=== PATIENT | female | born 1950 | race Caucasian/White ===

== ENCOUNTER 2016-04-12 16:03 | Emergency (ER) | payer BC ==
--- NOTE | 2016-04-12 16:53 | DIAGNOSTIC IMAGING REPORT ---
PROCEDURE: XR CHEST 1 VIEW INDICATION: CHEST PAIN TECHNIQUE: Portable AP view 04:33 p.m. COMPARISON: None. FINDINGS: Lungs are clear. Heart and mediastinum are normal. Thorax is normal. IMPRESSION: 1. Negative chest.
--- NOTE | 2016-04-12 18:28 | ED ORDER SUMMARY ---
..... Patient: EUGENIA FAN OrderSheet [facility] VisitID: [id number] [address] [place] [address] 65y, F Registration Date/Time: 04/12/2016 ORDER SHEET Weight: 63.5 kg (measured) Allergies: No Known Drug Allergy GENERAL ORDERS: EKG - ER Stat (16:28 04/12/2016 LNations ER Tech1 per protocol) (16:28 KHoerner) Multi Operation Machine Operator (Continuous) (16:37 04/12/2016 EHassan R.N. per protocol) (Ack 16:42 KHoerner) (16:57 EHassan R.N.) Chest 1V Urgent (16:37 04/12/2016 EHassan R.N. per protocol) (Ack 16:41 KHoerner) (16:52 MCampbell) Cardiac Panel Stat (16:37 04/12/2016 EHassan R.N. per protocol) (Ack 16:41 KHoerner) (16:57 EHassan R.N.) Oxygen (2 L/min) (NC) (16:37 04/12/2016 EHassan R.N. per protocol) (Ack 16:42 KHoerner) (16:57 EHassan R.N.) Pulse oximeter (16:37 04/12/2016 EHassan R.N. per protocol) (Ack 16:42 KHoerner) (16:57 EHassan R.N.) EKG - ER Stat (16:37 04/12/2016 EHassan R.N. per protocol) (Cancelled: Duplicate Order16:41 KHoerner) Vitals (16:37 04/12/2016 EHassan R.N. per protocol) (Ack 16:42 KHoerner) (16:57 EHassan R.N.) NPO (16:37 04/12/2016 EHassan R.N. per protocol) (Ack 16:42 KHoerner) (16:57 EHassan R.N.) MEDICATION ORDERS: Aspirin PO 325 mg (Do not crush or chew) (16:37 04/12/2016 EHassan R.N. per protocol) (16:37 EHassan R.N.) Metoprolol PO 50 mg (HIGH ALERT MEDICATION, NOW) (18:18 04/12/2016 Shirley MCCABE) (18:26 EHassan R.N.) IV FLUIDS: IV Saline Lock (16:37 04/12/2016 Geovanni R.N. per protocol) (16:38 EHassan R.N.) ORDER SHEET NOTES: [Electronically signed by Hanane Escobar R.N. (00:43 04/13/2016)] [Electronically signed by Mary Castro MD (03:03 04/17/2016)] [Electronically locked/signed by Hanane Escobar R.N. (00:43 04/13/2016)]
--- NOTE | 2016-04-12 18:28 | ED ORDER SUMMARY ---
..... Patient: EUGENIA FAN OrderSheet [facility] VisitID: [id number] [address] [place] [address] 65y, F Registration Date/Time: 04/12/2016 ORDER SHEET Weight: 63.5 kg (measured) Allergies: No Known Drug Allergy GENERAL ORDERS: EKG - ER Stat (16:28 04/12/2016 LNations ER Tech1 per protocol) (16:28 KHoerner) Green Chain Marker (Continuous) (16:37 04/12/2016 EHassan R.N. per protocol) (Ack 16:42 KHoerner) (16:57 EHassan R.N.) Chest 1V Urgent (16:37 04/12/2016 EHassan R.N. per protocol) (Ack 16:41 KHoerner) (16:52 MCampbell) Cardiac Panel Stat (16:37 04/12/2016 EHassan R.N. per protocol) (Ack 16:41 KHoerner) (16:57 EHassan R.N.) Oxygen (2 L/min) (NC) (16:37 04/12/2016 EHassan R.N. per protocol) (Ack 16:42 KHoerner) (16:57 EHassan R.N.) Pulse oximeter (16:37 04/12/2016 EHassan R.N. per protocol) (Ack 16:42 KHoerner) (16:57 EHassan R.N.) EKG - ER Stat (16:37 04/12/2016 EHassan R.N. per protocol) (Cancelled: Duplicate Order16:41 KHoerner) Vitals (16:37 04/12/2016 EHassan R.N. per protocol) (Ack 16:42 KHoerner) (16:57 EHassan R.N.) NPO (16:37 04/12/2016 EHassan R.N. per protocol) (Ack 16:42 KHoerner) (16:57 EHassan R.N.) MEDICATION ORDERS: Aspirin PO 325 mg (Do not crush or chew) (16:37 04/12/2016 EHassan R.N. per protocol) (16:37 EHassan R.N.) Metoprolol PO 50 mg (HIGH ALERT MEDICATION, NOW) (18:18 04/12/2016 Shirley MCCABE) (18:26 EHassan R.N.) IV FLUIDS: IV Saline Lock (16:37 04/12/2016 Geovanni R.N. per protocol) (16:38 EHassan R.N.) ORDER SHEET NOTES: [Electronically signed by Hanane Escobar R.N. (00:43 04/13/2016)] [Electronically signed by Mary Castro MD (03:03 04/17/2016)] [Electronically locked/signed by Hanane Escobar R.N. (00:43 04/13/2016)]
--- NOTE | 2016-04-12 18:28 | ED CLINICAL REPORT ---
Clinical Report - Physicians/Mid Levels [facility] [address] [place] [address] 04/12/2016 16:05 Patient: EUGENIA FAN Time Seen: 16:15. Arrived- By ambulance. Historian- patient and EMS personnel. HISTORY OF PRESENT ILLNESS Chief Complaint: CHEST PAIN. At its maximum, severity described as moderate. When seen in the E.D., it was almost gone. Modifying factors- worsened by exertion. Relieved by rest. It is described as "pain" and it is described as located in the central chest and left chest area. This started about 5 days ago and is still present. Onset during moderate exertion. No nausea, vomiting or diaphoresis. She has had difficulty breathing. (PT states that 5 days ago, she had her first episode of CP while walking up a steep hill with her dog. She had to stop and rest, and the pain went away. The next day, the same thing happened. PT states that on the 3rd day, she got pain and a sense of dyspnea when she went up the hill, and had to walk slowly home. Pt states that yesterday, she was carrying some boxes, and she began to have CP and SOB. Today, she was carrying groceries to the car, and experienced the same thing, except the pain persisted, even after she stopped to rest. Pt decided to come in and be seen, as the pain persisted throughout the afternoon. Pt states that it is now better. Pt states she had a negative stress test some years ago, but has not been tested recently.). Similar symptoms previously: None. Recent medical care: Not recently seen/assessed. REVIEW OF SYSTEMS No fever, chills, cough, pedal edema or calf pain. No fainting episodes, headache, sore throat, blurred vision or abdominal pain. No black stools, difficulty with urination, skin rash, enlarged lymph nodes or joint pain. No bloody stools. All systems otherwise negative, except as recorded above. PAST HISTORY Problems: Hypertension. Additional Surgeries: Moles removal. Tubal Ligation. Medications: Tylenol Arthritis Pain Oral. Multivitamin Oral. Calcium + D Oral. Nasacort AQ Nasal. Fish Oil Oral (Capsule 1200 mg) 1 capsule. [place]-3 Complex Oral. Losartan Potassium Oral 50 mg, daily. Montelukast Sodium Oral 10 mg, daily. Allergies: No Known Drug Allergy. SOCIAL HISTORY Former smoker, end date 1996. Alcohol use. ADDITIONAL NOTES The nursing notes have been reviewed. PHYSICAL EXAM Vital Signs: 04/12/2016 16:15 BP: 177/88. HR: 77. RR: 17. O2 saturation: 100%. Temp: 98.1 F. Pain level now: 0/10. Have been reviewed. Appearance: Alert. Oriented X3. No acute distress. Eyes: Pupils equal, round and reactive to light. Eyes normal inspection. ENT: Nose normal. Neck: Normal inspection. CVS: Normal heart rate and rhythm. Heart sounds normal. Pulses normal. Respiratory: No respiratory distress. Breath sounds normal. Abdomen: Soft and nontender. Back: Normal external inspection. Skin: Skin warm and dry. Normal skin color. No rash. Normal skin turgor. Extremities: Extremities exhibit normal ROM. No lower extremity edema. Neuro: Oriented X 3. No motor deficit. No sensory deficit. LABS, X-RAYS, AND EKG EKG: EKG time: (1617). No acute ischemia. Normal sinus rhythm. Rate: 76. Left atrial enlargement. Normal JUAN. Normal QRS complex. Normal axis. Normal QT and QTc. Non-specific ST segment / T wave abnormalities. Prior EKG unavailable. The study has been interpreted contemporaneously by me. The study has been independently viewed by me. The EKG appears to be a good tracing. I agree with and confirm the computer reading of the EKG. Rhythm Strip #1: Time: (17:52). Rate= 81. Normal sinus rhythm. Regular rhythm. Narrow QRS complexes. No ectopy. Conduction normal. Normal ST segments and T waves. The study was interpreted by me. Chest X-ray: No acute disease. Normal lung markings present. Normal heart size. Mediastinum normal. Great vessels normal. Soft tissues normal. No infiltrate. No fracture. No bony lesion present. Views: AP (portable). Technique: good. The X-rays were independently viewed by me, interpreted by the radiologist and contemporaneously by me and discussed with the radiologist. Prior films were not available for comparison. Laboratory Tests: CBC w Diff: (MASON: 04/12/2016 16:15) ( MsgRcvd 04/12/2016 17:26) Final results Test Result Flag Units (Reference) WHITE BLOOD COUNT 5.8 K/uL (4.5-11.5) RED BLOOD COUNT 4.05 M/uL (4.00-5.20) HEMOGLOBIN 12.7 gm/dL (12.0-16.0) HEMATOCRIT 37.5 % (36.0-46.0) MEAN CELL VOLUME 93 fL (80-100) MEAN CORPUSCULAR HGB 31 pg (26-34) MEAN CORPUSCULAR HGB CONC 34 g/dL (31-37) RED CELL DISTRIBUTION WIDTH 12.9 % (11.6-14.8) PLATELET COUNT 220 K/uL (150-400) NEUTROPHIL % 48.7 L % (50-75) LYMPH % 41.4 H % (25-40) MONO % 8.3 % (3-14) EOSINOPHIL % 1.1 % (0-4) BASOPHIL % 0.5 % (0-2) CHEM 13 PANEL: (MASON: 04/12/2016 16:15) ( MsgRcvd 04/12/2016 17:36) Final results Test Result Flag Units (Reference) GLUCOSE 100 mg/dL (70-110) BUN 10 mg/dL (7-18) CREATININE 0.6 mg/dL (0.6-1.3) Estimated GFR >60 mL/min Estimated GFR- >60 mL/min Note: Persistent reduction over 3 months in eGFR<60 mL/min/1.73 m2 defines CKD. Patients with eGFR values>=60 mL/min/1.73 m2 may also have CKD if evidence ofpersistent proteinuria. Additional information may be foundat www.kidney.org. SODIUM 144 mmol/L (136-145) POTASSIUM 3.4 L mmol/L (3.5-5.1) CHLORIDE 107 mmol/L (98-107) CARBON DIOXIDE 29 mmol/L (21-32) CALCIUM 9.1 mg/dL (8.5-10.1) TOTAL PROTEIN 7.9 g/dL (6.4-8.2) ALBUMIN 4.2 g/dL (3.3-5.0) BILIRUBIN, TOTAL 0.3 mg/dL (0.0-1.0) ALKALINE PHOSPHATASE 73 U/L (46-116) AST (SGOT) 27 U/L (15-37) ALT (SGPT) 34 U/L (12-78) CPK 67 U/L (24-260) MAGNESIUM 2.1 mg/dL (1.8-2.4) TROPONIN I <0.05 L ng/mL (0.00-1.5) TROPONIN REFERENCE RANGE:<0.1 NEGATIVE0.1-1.5 INDETERMINANT>1.5 POSITIVE . Pulse Oximetry: 04/12/2016 16:15 O2 saturation: 100%. (FIO2 - room air). Interpretation: normal. PROGRESS AND PROCEDURES Course of Care: PT was given ASA and metoprolol in the ED. I was concerned about her story and the exertional CP, and felt she should be worked up. Work-up was done, and was negative. Pt ambulated to the bathroom without CP. I spoke with Dr. Tolbert of cardiology regarding a plan for this pt, and he stated he would like the pt to come to his office first thing in the morning (9:00) to be urgently evaluated. I have d/w pt that it is extremely important that the pt go to this appointment. If she has any worsening of sx at all, she should immediately return to the ED, and we have discussed this. Discussed case with health care provider (Didi/cardiology). Patient counseled in person regarding the patient's stable condition, test results, diagnosis and need for follow-up. Concerns were addressed. Old medical records reviewed. Disposition: Discharged. Condition: stable. CLINICAL IMPRESSION Precordial chest pain characterized as "discomfort" .12 lead EKG performed. INSTRUCTIONS (Please avoid any exertion between now and your appointment tomorrow. If you develop chest discomfort, take nitroglycerine, as directed. If this does not result in resolution of the pain, return the emergency dept immediately.). Warnings: Further evaluation is necessary in order to assess the possibility of serious illness. It is very important to follow up with a physician. GENERAL WARNINGS: Return or contact your physician immediately if your condition worsens or changes unexpectedly, if not improving as expected, or if other problems arise. Your Current Medications: CONTINUE TAKING THE FOLLOWING MEDICATIONS: Calcium + D Oral. Fish Oil Oral : Capsule 1200 mg, 1 capsule. Losartan Potassium Oral : 50 mg daily. Montelukast Sodium Oral : 10 mg daily. Multivitamin Oral. Nasacort AQ Nasal. Moody-3 Complex Oral. Tylenol Arthritis Pain Oral. Prescription Medications: Metoprolol 50 mg: take 1 orally every 12 hours. Dispense thirty (30). No refills. Nitrostat 0.4 mg: dissolve 1 tab under tongue every 5 minutes as needed for chest pain or difficulty breathing. Dispense one (1) bottle. No refills. Substitution is permissible. Understanding of the discharge instructions verbalized by patient. Follow-up with: Oliver Tolbert MD, Cardiology, [phone], [place] [address] Follow up tomorrow as scheduled. Reason for referral: Follow up with Dr. Tolbert at 10:00 tomorrow morning, as he has requested. Please call the office and let them know that Dr. Castro (your ER doctor) and Dr. Tolbert spoke during your visit, and this is what he requested. (Electronically signed by Mary Castro MD 04/17/2016 3:03) Earnest EUGENIA Grayson VisitID: [id number] Date: 04/12/2016 04/13/2016 9:13 Instructed patient to follow up with Dr. Tolbert. Pt. called to ask about follow up appt scheduled with Dr. Tolbert while pt was in ER. Pt stated that phone number for his office was wrong and after tracking it down she was told there was no appt scheduled. CHARLETTE looked into clinical notes and found s notes to this effect. CHARLETTE called Dr. Tolbert's office to clarify. Office took Pt's phone number and stated they would call pt. for demographic and insurance information. CHARLETTE called pt back after a few minutes and pt stated Dr. Lau's office had been in touch. (Electronically signed by Padmini Arzate - 04/13/2016 9:13)
--- NOTE | 2016-04-12 18:28 | ED NURSING NOTES ---
Clinical Report - Nurses [facility] [address] [place] [address] 04/12/2016 16:05 [id number] Triage time 16:10 Apr 12 2016. Chief Complaint: CHEST PAIN. Alert. LASHONDA COMA SCORE: [place] Coma Scale: 15- eyes open spontaneously (4); best verbal response- oriented x 4 (5); best motor response- obeys commands (6). --16:21 Shelton Mcfarlane R.N. 16:15 04/12/16. BP: 177/88. HR: 81. RR: 16. O2 saturation: 100% on room air. Temp: 98.1 F. Pain level now: 2/10. Additional comments: Dyspnea. --16:21 Shelton Mcfarlane R.N. Triage time 1610 PM. Acuity: LEVEL 2. Chief Complaint: CHEST PAIN and DISCOMFORT. Alert. No acute distress. SEPSIS SCREEN: Sepsis Screen. Negative (no infection suspected/documented). LASHONDA COMA SCORE: [place] Coma Scale: 15- eyes open spontaneously (4); best verbal response- oriented x 4 (5); best motor response- obeys commands (6). --16:29 Hanane Escobar R.N. 16:15 04/12/16. BP: 177/88. HR: 77. RR: 17 (regular and unlabored). O2 saturation: 100% on room air. Temp: 98.1 F. Pain level now: 0/10. --16:29 Hanane Escobar R.N. Weight: 63.5 kg measured. Height/Length: 65 inches Per Patient. BMI: 23.3. --16:18 Shelton Mcfarlane R.N. Medications Montelukast Sodium Oral 10 mg, daily. --16:38 Hanane Escobar R.N. Losartan Potassium Oral 50 mg, daily. --16:38 Hanane Escobar R.N. Fish Oil Oral (Capsule 1200 mg) 1 capsule. [place]-3 Complex Oral. --16:39 Hanane Escobar R.N. Nasacort AQ Nasal. --16:39 Hanane Escobar R.N. Calcium + D Oral. --16:40 Hanane Escobar R.N. Multivitamin Oral. --16:40 Hanane Escobar R.N. Tylenol Arthritis Pain Oral. --16:40 Hanane Escobar R.N. Allergies No Known Drug Allergy. --16:21 Shelton Mcfarlane R.N. Medication/allergy information source: the patient. --16:21 Shelton Mcfarlane R.N. Medication/allergy information source: the patient. --16:29 Hanane Escobar R.N. History Arrived by private vehicle. Historian: patient. Unaccompanied. Primary physician (Tory Bardales). ( Chest pain intermittently for the last 5 days.). Onset. (about 5 days ago). 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 --16:21 Shelton Mcfarlane R.N. Arrived by private vehicle. Historian: patient. Primary physician (Dr. Bardales). ( PT states on Sunday was walking her dog when she felt "chest pressure" mid upper chest pain 07/22, then Sunday another episode while walking experience chest discomfort with SOB, again on Sunday (morning walking to car) and today while packing boxes around 3 pm, experienced chest pressure with SOB. Decided to come to ED). Onset. (sunday). She has had difficulty breathing. Reports experiencing sweating episodes. No nausea, vomiting, fever or cough. 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 PAST MEDICAL HX: Immunizations: up-to-date. The patient is post-menopausal. SOCIAL HX: Former smoker, end date 1996. Alcohol use. History of drug use. No infectious disease exposure. ABUSE ASSESSMENT: No report of abuse. SELF HARM ASSESSMENT: A self harm assessment was performed. The patient answered "no" to the question "Do you have thoughts of harming or killing yourself?" and "Have you recently had thoughts about harming or killing others?". FALL RISK ASSESSMENT: Fall risk assessment completed. No fall risk identified. NUTRITIONAL RISK ASSESSMENT: The nutritional risk assessment revealed no deficiencies. FUNCTIONAL ASSESSMENT: Functional assessment: no impairments noted. LEARNING NEEDS ASSESSMENT: The learning needs assessment revealed no barriers. SKIN INTEGRITY ASSESSMENT: Skin integrity risk assessment completed. No skin integrity risk identified. --16:29 Hanane Escobar R.N. PROBLEMS: Hypertension. --16:42 Hanane Escobar R.N. ADDITIONAL SURGERIES: Moles removal. Tubal Ligation. --16:42 Hanane Escobar R.N. Interventions ID band on patient. --16:29 Hanane Escobar R.N. PHYSICAL ASSESSMENT Ambulatory to room. GENERAL / NEURO / PSYCH: Alert. Oriented X 4. Appears in no acute distress. HEENT: Mucous membranes are pink. RESPIRATORY: Respirations not labored. Chest nontender. Breath sounds within normal limits. CVS: No JVD or carotid bruit. Normal sinus rhythm noted. Cardiac rhythm: normal sinus rhythm. Heart sounds within normal limits. Pulses within normal limits. Capillary refill less than 2 seconds. GI / : Abdomen soft and nontender. EXTREMITIES: No lower extremity edema. SKIN: Skin is warm and dry. Normal skin turgor. --16:30 Hanane Escobar R.N. NURSING PROGRESS NOTES 16:24 04/12/2016 Site #1 started via IV in the right antecubital space with an 20g angiocath; one attempt. Blood drawn: rainbow set. Labeled in the presence of the patient and sent to the lab. Saline lock flushed. --16:34 Hanane Escobar R.N. 16:30 04/12/16. BP: 173/79. HR: 76. RR: 15. O2 saturation: 100%. Pain level now: 0/10. --16:34 Hanane Escobar R.N. Cardiac rhythm: normal sinus rhythm. The initial plan of care for this patient has been created This plan of care was discussed with the patient. ekg monitor tech, pulse oximeter and NIBP monitor placed on patient. EKG time: (1605 PM). Patient ID band checked for patient name, birthdate and medical record number: patient confirmed. Blood samples drawn from the right antecubital space by nurse per protocol ; labeled in presence of the patient and sent to lab: rainbow set: cardiac enzymes (1st set). Patient gowned. Warming measures: blanket applied. ( EKG obtained, ASA given as per protocol, blood sent, pt denies CP but admits to being SOB). CVS: Denies chest pain. Two patient identifiers checked. Call light placed in reach. Side rails up x 2. Bed placed in lowest position. Brakes of bed on. --16:34 Hanane Escobar R.N. 16:27 04/12/2016 Aspirin PO Tablets 325 mg given. Allergies verified and confirmed 5 rights. --16:37 Hanane Escobar R.N. 17:09 04/12/16. BP: 156/65 taken on the left arm, via an automated monitor, while lying. HR: 74. RR: 17. O2 saturation: 100%. Pain level now: 0/10. --18:19 Hanane Escobar R.N. Cardiac rhythm: normal sinus rhythm. ekg monitor tech, pulse oximeter and NIBP monitor placed on patient. Reassurance given. Reassessment after oxygen administered. She is calm and resting quietly. Overall patient status is the same- she states feels the same. RESPIRATORY: Denies difficulty breathing. CVS: Denies chest pain. Call light placed in reach. Side rails up x 1. Bed placed in lowest position. Brakes of bed on. --18:19 Hanane Escobar R.N. 17:30 04/12/16. BP: 153/56. HR: 79. RR: 15. O2 saturation: 100%. O2 started via nasal cannula at 2 liters/minute. Pain level now: 0/10. --18:20 Hanane Escobar R.N. Cardiac rhythm: normal sinus rhythm. Reassurance given. Overall patient status is the same- she states feels the same. RESPIRATORY: Denies difficulty breathing. No respiratory distress present. CVS: Denies chest pain. Normal sinus rhythm noted. Call light placed in reach. Side rails up x 1. --18:20 Hanane Escobar R.N. 18:21 04/12/2016 Site #1 reassessed; patent, infusing well and no signs of infection or infiltration. Converted to saline lock. --18:22 Hanane Escobar R.N. 18:01 04/12/16. BP: 139/66 (regular adult cuff) taken on the left arm, via an automated monitor, while lying. HR: 77. RR: 15 (regular, unlabored and normal). O2 saturation: 100% on room air. Pain level now: 0/10. --18:22 Hanane Escobar R.N. Cardiac rhythm: normal sinus rhythm. ekg monitor tech, pulse oximeter and NIBP monitor placed on patient. RESPIRATORY: Denies difficulty breathing. CVS: Denies chest pain. --18:22 Hanane Escobar R.N. 17:04 04/12/2016 Aspirin PO Response: no adverse reaction. --18:29 Hanane Escobar R.N. 18:26 04/12/2016 Metoprolol PO Tablets 50 mg given. Allergies verified and confirmed 5 rights. --18:26 Hanane Escobar R.N. DISPOSITION / DISCHARGE 19:06 04/12/2016 Site #1 removed upon discharge. Catheter intact. Manual pressure and bandaid applied. --21:32 Hanane Escobar R.N. Departure time: 1910 PM. Condition at departure: improved and stable. The goals identified in the patient's plan of care were met. No learning barriers present. Discharge instructions provided and reviewed with the patient. Reviewed warnings (S/S of CP). Reviewed medication(s) side effects, precautions, dosing and course information. Prescription(s) given to the patient. Reviewed referral to a summer law clerk. Activity restrictions (rest) reviewed. Patient verbalized understanding. Written instructions provided in Vietnamese. ( All instructions reviewed, importance of following up with Dr. Tolbert in the morning, Nitro script given to her and explanation given and verbalizes back of how to take it when experiencing symptoms of CP, a max of 3 and then if no relief to return to ED. All concerns addressed.). No treatment instructions. The patient was discharged by the physician. She was discharged home and unaccompanied at time of discharge. She left the Emergency Department ambulatory and via private vehicle. Patient driving. FALL RISK ASSESSMENT: Fall risk assessment completed. No fall risk identified. LASHONDA COMA SCORE: [place] Coma Scale: 15- eyes open spontaneously (4); best verbal response- oriented x 4 (5); best motor response- obeys commands (6). --00:43 Hanane Escobar R.N. 23:53 04/12/16. BP: 168/72 (regular adult cuff) taken on the left arm, via an automated monitor, while sitting. HR: 67. RR: 16. O2 saturation: 100% on room air. Temp: 98.2 F (oral). Pain level now: 0. --00:43 Hanane Escobar R.N. Locked/Released at 04/13/2016 0:43 by Hanane Escobar R.N.
--- NOTE | 2016-04-12 18:28 | ED NURSING NOTES ---
Clinical Report - Nurses [facility] [address] [place] [address] 04/12/2016 16:05 [id number] Triage time 16:10 Apr 12 2016. Chief Complaint: CHEST PAIN. Alert. LASHONDA COMA SCORE: [place] Coma Scale: 15- eyes open spontaneously (4); best verbal response- oriented x 4 (5); best motor response- obeys commands (6). --16:21 Shelton Mcfarlane R.N. 16:15 04/12/16. BP: 177/88. HR: 81. RR: 16. O2 saturation: 100% on room air. Temp: 98.1 F. Pain level now: 2/10. Additional comments: Dyspnea. --16:21 Shelton Mcfarlane R.N. Triage time 1610 PM. Acuity: LEVEL 2. Chief Complaint: CHEST PAIN and DISCOMFORT. Alert. No acute distress. SEPSIS SCREEN: Sepsis Screen. Negative (no infection suspected/documented). LASHONDA COMA SCORE: [place] Coma Scale: 15- eyes open spontaneously (4); best verbal response- oriented x 4 (5); best motor response- obeys commands (6). --16:29 Hanane Escobar R.N. 16:15 04/12/16. BP: 177/88. HR: 77. RR: 17 (regular and unlabored). O2 saturation: 100% on room air. Temp: 98.1 F. Pain level now: 0/10. --16:29 Hanane Escobar R.N. Weight: 63.5 kg measured. Height/Length: 65 inches Per Patient. BMI: 23.3. --16:18 Shelton Mcfarlane R.N. Medications Montelukast Sodium Oral 10 mg, daily. --16:38 Hanane Escobar R.N. Losartan Potassium Oral 50 mg, daily. --16:38 Hanane Escobar R.N. Fish Oil Oral (Capsule 1200 mg) 1 capsule. [place]-3 Complex Oral. --16:39 Hanane Escobar R.N. Nasacort AQ Nasal. --16:39 Hanane Escobar R.N. Calcium + D Oral. --16:40 Hanane Escobar R.N. Multivitamin Oral. --16:40 Hanane Escobar R.N. Tylenol Arthritis Pain Oral. --16:40 Hanane Escobar R.N. Allergies No Known Drug Allergy. --16:21 Shelton Mcfarlane R.N. Medication/allergy information source: the patient. --16:21 Shelton Mcfarlane R.N. Medication/allergy information source: the patient. --16:29 Hanane Escobar R.N. History Arrived by private vehicle. Historian: patient. Unaccompanied. Primary physician (Tory Bardales). ( Chest pain intermittently for the last 5 days.). Onset. (about 5 days ago). 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 --16:21 Shelton Mcfarlane R.N. Arrived by private vehicle. Historian: patient. Primary physician (Dr. Bardales). ( PT states on Sunday was walking her dog when she felt "chest pressure" mid upper chest pain 07/22, then Sunday another episode while walking experience chest discomfort with SOB, again on Sunday (morning walking to car) and today while packing boxes around 3 pm, experienced chest pressure with SOB. Decided to come to ED). Onset. (sunday). She has had difficulty breathing. Reports experiencing sweating episodes. No nausea, vomiting, fever or cough. 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 PAST MEDICAL HX: Immunizations: up-to-date. The patient is post-menopausal. SOCIAL HX: Former smoker, end date 1996. Alcohol use. History of drug use. No infectious disease exposure. ABUSE ASSESSMENT: No report of abuse. SELF HARM ASSESSMENT: A self harm assessment was performed. The patient answered "no" to the question "Do you have thoughts of harming or killing yourself?" and "Have you recently had thoughts about harming or killing others?". FALL RISK ASSESSMENT: Fall risk assessment completed. No fall risk identified. NUTRITIONAL RISK ASSESSMENT: The nutritional risk assessment revealed no deficiencies. FUNCTIONAL ASSESSMENT: Functional assessment: no impairments noted. LEARNING NEEDS ASSESSMENT: The learning needs assessment revealed no barriers. SKIN INTEGRITY ASSESSMENT: Skin integrity risk assessment completed. No skin integrity risk identified. --16:29 Hanane Escobar R.N. PROBLEMS: Hypertension. --16:42 Hanane Escobar R.N. ADDITIONAL SURGERIES: Moles removal. Tubal Ligation. --16:42 Hanane Escobar R.N. Interventions ID band on patient. --16:29 Hanane Escobar R.N. PHYSICAL ASSESSMENT Ambulatory to room. GENERAL / NEURO / PSYCH: Alert. Oriented X 4. Appears in no acute distress. HEENT: Mucous membranes are pink. RESPIRATORY: Respirations not labored. Chest nontender. Breath sounds within normal limits. CVS: No JVD or carotid bruit. Normal sinus rhythm noted. Cardiac rhythm: normal sinus rhythm. Heart sounds within normal limits. Pulses within normal limits. Capillary refill less than 2 seconds. GI / : Abdomen soft and nontender. EXTREMITIES: No lower extremity edema. SKIN: Skin is warm and dry. Normal skin turgor. --16:30 Hanane Escobar R.N. NURSING PROGRESS NOTES 16:24 04/12/2016 Site #1 started via IV in the right antecubital space with an 20g angiocath; one attempt. Blood drawn: rainbow set. Labeled in the presence of the patient and sent to the lab. Saline lock flushed. --16:34 Hanane Escobar R.N. 16:30 04/12/16. BP: 173/79. HR: 76. RR: 15. O2 saturation: 100%. Pain level now: 0/10. --16:34 Hanane Escobar R.N. Cardiac rhythm: normal sinus rhythm. The initial plan of care for this patient has been created This plan of care was discussed with the patient. perforating machine operator, pulse oximeter and NIBP monitor placed on patient. EKG time: (1605 PM). Patient ID band checked for patient name, birthdate and medical record number: patient confirmed. Blood samples drawn from the right antecubital space by nurse per protocol ; labeled in presence of the patient and sent to lab: rainbow set: cardiac enzymes (1st set). Patient gowned. Warming measures: blanket applied. ( EKG obtained, ASA given as per protocol, blood sent, pt denies CP but admits to being SOB). CVS: Denies chest pain. Two patient identifiers checked. Call light placed in reach. Side rails up x 2. Bed placed in lowest position. Brakes of bed on. --16:34 Hanane Escobar R.N. 16:27 04/12/2016 Aspirin PO Tablets 325 mg given. Allergies verified and confirmed 5 rights. --16:37 Hanane Escobar R.N. 17:09 04/12/16. BP: 156/65 taken on the left arm, via an automated monitor, while lying. HR: 74. RR: 17. O2 saturation: 100%. Pain level now: 0/10. --18:19 Hanane Escobar R.N. Cardiac rhythm: normal sinus rhythm. perforating machine operator, pulse oximeter and NIBP monitor placed on patient. Reassurance given. Reassessment after oxygen administered. She is calm and resting quietly. Overall patient status is the same- she states feels the same. RESPIRATORY: Denies difficulty breathing. CVS: Denies chest pain. Call light placed in reach. Side rails up x 1. Bed placed in lowest position. Brakes of bed on. --18:19 Hanane Escobar R.N. 17:30 04/12/16. BP: 153/56. HR: 79. RR: 15. O2 saturation: 100%. O2 started via nasal cannula at 2 liters/minute. Pain level now: 0/10. --18:20 Hanane Escobar R.N. Cardiac rhythm: normal sinus rhythm. Reassurance given. Overall patient status is the same- she states feels the same. RESPIRATORY: Denies difficulty breathing. No respiratory distress present. CVS: Denies chest pain. Normal sinus rhythm noted. Call light placed in reach. Side rails up x 1. --18:20 Hanane Escobar R.N. 18:21 04/12/2016 Site #1 reassessed; patent, infusing well and no signs of infection or infiltration. Converted to saline lock. --18:22 Hanane Escobar R.N. 18:01 04/12/16. BP: 139/66 (regular adult cuff) taken on the left arm, via an automated monitor, while lying. HR: 77. RR: 15 (regular, unlabored and normal). O2 saturation: 100% on room air. Pain level now: 0/10. --18:22 Hanane Escobar R.N. Cardiac rhythm: normal sinus rhythm. perforating machine operator, pulse oximeter and NIBP monitor placed on patient. RESPIRATORY: Denies difficulty breathing. CVS: Denies chest pain. --18:22 Hanane Escobar R.N. 17:04 04/12/2016 Aspirin PO Response: no adverse reaction. --18:29 Hanane Escobar R.N. 18:26 04/12/2016 Metoprolol PO Tablets 50 mg given. Allergies verified and confirmed 5 rights. --18:26 Hanane Escobar R.N. DISPOSITION / DISCHARGE 19:06 04/12/2016 Site #1 removed upon discharge. Catheter intact. Manual pressure and bandaid applied. --21:32 Hanane Escobar R.N. Departure time: 1910 PM. Condition at departure: improved and stable. The goals identified in the patient's plan of care were met. No learning barriers present. Discharge instructions provided and reviewed with the patient. Reviewed warnings (S/S of CP). Reviewed medication(s) side effects, precautions, dosing and course information. Prescription(s) given to the patient. Reviewed referral to a cv rn. Activity restrictions (rest) reviewed. Patient verbalized understanding. Written instructions provided in Kinyarwanda. ( All instructions reviewed, importance of following up with Dr. Tolbert in the morning, Nitro script given to her and explanation given and verbalizes back of how to take it when experiencing symptoms of CP, a max of 3 and then if no relief to return to ED. All concerns addressed.). No treatment instructions. The patient was discharged by the physician. She was discharged home and unaccompanied at time of discharge. She left the Emergency Department ambulatory and via private vehicle. Patient driving. FALL RISK ASSESSMENT: Fall risk assessment completed. No fall risk identified. LASHONDA COMA SCORE: [place] Coma Scale: 15- eyes open spontaneously (4); best verbal response- oriented x 4 (5); best motor response- obeys commands (6). --00:43 Hanane Escobar R.N. 23:53 04/12/16. BP: 168/72 (regular adult cuff) taken on the left arm, via an automated monitor, while sitting. HR: 67. RR: 16. O2 saturation: 100% on room air. Temp: 98.2 F (oral). Pain level now: 0. --00:43 Hanane Escobar R.N. Locked/Released at 04/13/2016 0:43 by Hanane Escobar R.N.
--- NOTE | 2016-04-17 03:03 | ED MAR SUMMARY ---
..... Medication Administration Record [facility] [address] [place] [address] Patient: EUGENIA FAN Visit ID: [id number] 65y, F Weight: 63.5 kg Height/Length: 65 in BMI: 23.3 ALLERGIES: No Known Drug Allergy Given 16:27 04/12/2016 Hanane Escobar RBradyNBrady Medication Administered: ASPIRIN [PO], Dose: 325 mg Tablets PO. Medication Ordered: Aspirin PO 325 mg (Do not crush or chew). Given 18:26 04/12/2016 Hanane Escobar, RBradyN. Medication Administered: METOPROLOL [PO], Dose: 50 mg Tablets PO. Medication Ordered: Metoprolol PO 50 mg (HIGH ALERT MEDICATION, NOW).
--- NOTE | 2016-04-17 03:03 | ED DISCHARGE INSTRUCTIONS ---
Patient: EUGENIA FAN General Instructions [facility] VisitID: [id number] [place] [address] 65y, F Registration Date/Time: 04/12/2016 Precordial chest pain characterized as "discomfort" .12 lead EKG performed. INSTRUCTIONS (Please avoid any exertion between now and your appointment tomorrow. If you develop chest discomfort, take nitroglycerine, as directed. If this does not result in resolution of the pain, return the emergency dept immediately.). Warnings: Further evaluation is necessary in order to assess the possibility of serious illness. It is very important to follow up with a physician. GENERAL WARNINGS: Return or contact your physician immediately if your condition worsens or changes unexpectedly, if not improving as expected, or if other problems arise. Your Current Medications: CONTINUE TAKING THE FOLLOWING MEDICATIONS: Calcium + D Oral. Fish Oil Oral : Capsule 1200 mg, 1 capsule. Losartan Potassium Oral : 50 mg daily. Montelukast Sodium Oral : 10 mg daily. Multivitamin Oral. Nasacort AQ Nasal. [place]-3 Complex Oral. Tylenol Arthritis Pain Oral. Prescription Medications: Metoprolol 50 mg: take 1 orally every 12 hours. Dispense thirty (30). No refills. Nitrostat 0.4 mg: dissolve 1 tab under tongue every 5 minutes as needed for chest pain or difficulty breathing. Dispense one (1) bottle. No refills. Substitution is permissible. Understanding of the discharge instructions verbalized by patient. Follow-up with: Oliver Tolbert MD, Cardiology, [phone], [address], [place] [address] Follow up tomorrow as scheduled. Reason for referral: Follow up with Dr. Tolbert at 10:00 tomorrow morning, as he has requested. Please call the office and let them know that Dr. Castro (your ER doctor) and Dr. Tolbert spoke during your visit, and this is what he requested. ADDITIONAL INFORMATION Chest Pain, Uncertain Cause Chest pain can happen for a number of reasons. Sometimes the cause can not be determined. If yourcondition does not seem serious, and your pain does not appear to be coming from your heart, your doctor may recommend watching it closely. Sometimes the signs of a serious problem take more time to appear. Therefore, watch for the warning signs listed below. Home care After your visit, follow these recommendations: Rest today and avoid strenuous activity. Take any prescribed medicine as directed. Follow-up care Follow up with your doctor or this facility as instructed or if you do not start to feel better within 24 hours. Call 911 Get immediate medical attention if any of the following occur: A change in the type of pain: if it feels different, becomes more severe, lasts longer, or begins to spread into your shoulder, arm, neck, jaw or back Shortness of breath or increased pain with breathing Weakness, dizziness, or fainting Rapid heart beat Get prompt medical attention Call your doctor right away if any of the following occur: Cough with dark colored sputum (phlegm) or blood Fever of 100.4F(38C) or higher, or as directed by your health care provider Swelling, pain or redness in one leg You have been given the following additional information: Chest Pain, Uncertain Cause (Electronically signed by Mary Castro MD 04/17/2016 3:03)
--- NOTE | 2016-04-17 03:03 | ED MAR SUMMARY ---
..... Medication Administration Record [facility] [address] [place] [address] Patient: EUGENIA FAN Visit ID: [id number] 65y, F Weight: 63.5 kg Height/Length: 65 in BMI: 23.3 ALLERGIES: No Known Drug Allergy Given 16:27 04/12/2016 Hanane Escobar RBradyNBrady Medication Administered: ASPIRIN [PO], Dose: 325 mg Tablets PO. Medication Ordered: Aspirin PO 325 mg (Do not crush or chew). Given 18:26 04/12/2016 Hanane Escobar, RBradyN. Medication Administered: METOPROLOL [PO], Dose: 50 mg Tablets PO. Medication Ordered: Metoprolol PO 50 mg (HIGH ALERT MEDICATION, NOW).
--- NOTE | 2016-04-17 03:03 | ED MED RECONCILIATION SUMMARY ---
Patient: EUGENIA FAN Medication Reconciliation Report [facility] VisitID: [id number] [address] [place] [address] 65y, F Registration Date/Time: 04/12/2016 Weight: 63.5 kg Height/Length: 65 in. BMI: 23.3 ALLERGIES: No Known Drug Allergy The patient's Home Medications are listed below: CONTINUE TAKING THE FOLLOWING MEDICATIONS: Calcium + D Oral Fish Oil Oral (1200 mg) 1 capsule Losartan Potassium Oral 50 mg, daily Montelukast Sodium Oral 10 mg, daily Multivitamin Oral Nasacort AQ Nasal [place]-3 Complex Oral Tylenol Arthritis Pain Oral The source(s) of the original Home Medication information: patient The following Medications were given to the patient in the Emergency Department: Aspirin [PO] PO 325 mg, administered: 04/12/2016 4:27:00 PM Metoprolol [PO] PO 50 mg, administered: 04/12/2016 6:26:00 PM The following Medications were prescribed to the patient: Metoprolol 50 mg: take 1 orally every 12 hours. Dispense thirty (30). No refills. -- Mary Castro MD Nitrostat 0.4 mg: dissolve 1 tab under tongue every 5 minutes as needed for chest pain or difficulty breathing. Dispense one (1) bottle. No refills. Substitution is permissible. -- Mary Castro MD
--- NOTE | 2016-04-17 03:03 | ED MED RECONCILIATION SUMMARY ---
Patient: EUGENIA FAN Medication Reconciliation Report [facility] VisitID: [id number] [address] [place] [address] 65y, F Registration Date/Time: 04/12/2016 Weight: 63.5 kg Height/Length: 65 in. BMI: 23.3 ALLERGIES: No Known Drug Allergy The patient's Home Medications are listed below: CONTINUE TAKING THE FOLLOWING MEDICATIONS: Calcium + D Oral Fish Oil Oral (1200 mg) 1 capsule Losartan Potassium Oral 50 mg, daily Montelukast Sodium Oral 10 mg, daily Multivitamin Oral Nasacort AQ Nasal [place]-3 Complex Oral Tylenol Arthritis Pain Oral The source(s) of the original Home Medication information: patient The following Medications were given to the patient in the Emergency Department: Aspirin [PO] PO 325 mg, administered: 04/12/2016 4:27:00 PM Metoprolol [PO] PO 50 mg, administered: 04/12/2016 6:26:00 PM The following Medications were prescribed to the patient: Metoprolol 50 mg: take 1 orally every 12 hours. Dispense thirty (30). No refills. -- Mary Castro MD Nitrostat 0.4 mg: dissolve 1 tab under tongue every 5 minutes as needed for chest pain or difficulty breathing. Dispense one (1) bottle. No refills. Substitution is permissible. -- Mary Castro MD
--- NOTE | 2016-04-17 03:03 | ED DISCHARGE INSTRUCTIONS ---
Patient: EUGENIA FAN General Instructions [facility] VisitID: [id number] [place] [address] 65y, F Registration Date/Time: 04/12/2016 Precordial chest pain characterized as "discomfort" .12 lead EKG performed. INSTRUCTIONS (Please avoid any exertion between now and your appointment tomorrow. If you develop chest discomfort, take nitroglycerine, as directed. If this does not result in resolution of the pain, return the emergency dept immediately.). Warnings: Further evaluation is necessary in order to assess the possibility of serious illness. It is very important to follow up with a physician. GENERAL WARNINGS: Return or contact your physician immediately if your condition worsens or changes unexpectedly, if not improving as expected, or if other problems arise. Your Current Medications: CONTINUE TAKING THE FOLLOWING MEDICATIONS: Calcium + D Oral. Fish Oil Oral : Capsule 1200 mg, 1 capsule. Losartan Potassium Oral : 50 mg daily. Montelukast Sodium Oral : 10 mg daily. Multivitamin Oral. Nasacort AQ Nasal. [place]-3 Complex Oral. Tylenol Arthritis Pain Oral. Prescription Medications: Metoprolol 50 mg: take 1 orally every 12 hours. Dispense thirty (30). No refills. Nitrostat 0.4 mg: dissolve 1 tab under tongue every 5 minutes as needed for chest pain or difficulty breathing. Dispense one (1) bottle. No refills. Substitution is permissible. Understanding of the discharge instructions verbalized by patient. Follow-up with: Oliver Tolbert MD, Cardiology, [phone], [address], [place] [address] Follow up tomorrow as scheduled. Reason for referral: Follow up with Dr. Tolbert at 10:00 tomorrow morning, as he has requested. Please call the office and let them know that Dr. Castro (your ER doctor) and Dr. Tolbert spoke during your visit, and this is what he requested. ADDITIONAL INFORMATION Chest Pain, Uncertain Cause Chest pain can happen for a number of reasons. Sometimes the cause can not be determined. If yourcondition does not seem serious, and your pain does not appear to be coming from your heart, your doctor may recommend watching it closely. Sometimes the signs of a serious problem take more time to appear. Therefore, watch for the warning signs listed below. Home care After your visit, follow these recommendations: Rest today and avoid strenuous activity. Take any prescribed medicine as directed. Follow-up care Follow up with your doctor or this facility as instructed or if you do not start to feel better within 24 hours. Call 911 Get immediate medical attention if any of the following occur: A change in the type of pain: if it feels different, becomes more severe, lasts longer, or begins to spread into your shoulder, arm, neck, jaw or back Shortness of breath or increased pain with breathing Weakness, dizziness, or fainting Rapid heart beat Get prompt medical attention Call your doctor right away if any of the following occur: Cough with dark colored sputum (phlegm) or blood Fever of 100.4F(38C) or higher, or as directed by your health care provider Swelling, pain or redness in one leg You have been given the following additional information: Chest Pain, Uncertain Cause (Electronically signed by Mary Castro MD 04/17/2016 3:03)
== END 2016-04-12 19:10 | disposition home or self-care (01) ==
LOC: ED SRH 16:03
DX: R07.2 Precordial pain (principal); I10 Essential (primary) hypertension; Z79.899 Other long term (current) drug therapy; Z87.891 Personal history of nicotine dependence
CPT/HCPCS: 90100; 90616; 92610; 92720; 95059